=== PATIENT | male | born 1980 | race Two or more races ===

== ENCOUNTER 2021-05-31 06:30 | Emergency (ER) | payer MEDICAID ==
[~2021-05-31] VITALS: Ht 162.6 cm; Wt 70.9 kg
[2021-05-31 06:42] VITALS: BP 118/71
[2021-05-31] MEDS ORDERED: VENL150C2 PO (06:56)
[2021-05-31] MEDS ORDERED: GABA600T13 PO (06:56)
== END 2021-05-31 07:15 | disposition home or self-care (01) ==
LOC: ER 06:31
DX: Z76.0 Encounter for issue of repeat prescription (principal); M79.643 Pain in unspecified hand; Z79.899 Other long term (current) drug therapy
CPT/HCPCS: 99281; 99283

== ENCOUNTER 2021-06-20 17:45 | Emergency (ER) | payer MEDICAID ==
[~2021-06-20] VITALS: Ht 162.6 cm; Wt 71.4 kg
[~2021-06-20 17:45] MED LIST: GABA600T13 PO; VENL150C2 PO
[2021-06-20 17:50] VITALS: BP 111/79
[2021-06-20] MEDS ORDERED: GABA600T13 PO (18:02)
[2021-06-20] MEDS ORDERED: VENL150C2 PO (18:02)
== END 2021-06-20 19:22 | disposition home or self-care (01) ==
LOC: ER 17:46
DX: Z76.0 Encounter for issue of repeat prescription (principal); M19.90 Unspecified osteoarthritis, unspecified site; F17.210 Nicotine dependence, cigarettes, uncomplicated; Z79.899 Other long term (current) drug therapy
CPT/HCPCS: 99282

== ENCOUNTER 2024-08-23 05:57 | Emergency (ER) | payer MEDICAID ==
[~2024-08-23] VITALS: Ht 162.6 cm; Wt 70.0 kg
[~2024-08-23 05:57] MED LIST changes: +GABA-1405 PO; -GABA600T13 PO; -VENL150C2 PO; +VENL150C5 PO
--- NOTE | 2024-08-23 06:41 | Physician Documentation ---
History of Present Illness ~ Chief Complaint: Sore Throat Stated Complaint: SORE THROAT/MED REFILL Time Seen by MD: 06:26 Primary Medical Doctor: Pj Whitten in [facility] 44-year-old gentleman with a history of depression and cervical neuralgia came to the emergency room for sore throat for two days. He is able to talk and swallow. He thinks he got it from his grandson he has been taking care of. No fever no chills no shortness a breath and no chest pain no abdominal pain. No nausea vomiting diarrhea. Medication Reconciliation Allergies: Coded Allergies: No Known Allergies (Unverified , 08/23/24) Scheduled Gabapentin (Gabapentin), 1 TAB PO BID Gabapentin (Gabapentin), 1 TAB PO Q8H Venlafaxine HCl (Effexor Xr), 1 CAP PO DAILY Venlafaxine HCl (Effexor Xr), 1 CAP PO DAILY Past Medical History Past Medical History: Arthritis Past Surgical History: noncontributory Alcohol Use: None Drug Use: none Review of Systems ROS As stated above in the HPI, otherwise all systems are reviewed and negative. Physical Exam Vital Signs: Temperature: 97.5, Source: Temporal, Heart Rate: 87, Respiratory Rate: 12, BP: 123/68, Pulse Oximetry: 100, Weight: 69.950 Physical Exam Reviewed vital signs and afebrile and well within normal range. Const: The patient is not in acute cardiopulmonary distress Head: Atraumatic Eyes: Normal Conjunctiva ENT: Normal External Ears, Nose and Mouth. Moist mucous membranes Bilateral tonsillar enlargement and scattered white exudate on top of the enlargement. Airway is wide open. Neck: Full range of motion. No meningismus, no stridor Resp: Clear to auscultation bilaterally. Normal work of breathing Cardio: Regular rate and rhythm, no murmurs. Skin well perfused Abd: Soft, non-tender, non-distended. Normal bowel sounds. No rebound or guarding Skin: No petechiae or rashes. Warm and dry Back: No midline or flank tenderness Ext: No cyanosis, or edema Neuro: Awake and alert Psych: Normal Mood and Affect Progress Results/Orders Results/Orders Vital Signs 08/23/24 06:00 Temp 97.5 Pulse 87 Resp 12 B/P (MAP) 123/68 Pulse Ox 100 Medical Decision Making Findings During the physical examination, the findings suggestive of acute life- threatening condition such as JVD, tracheal deviation, acidotic breathing, noisy stridorous breath sounds, pulses paradoxus, muffled heart sounds, unequal breath sounds, abdominal rigidity and rebound tenderness, focal neurological deficits, cool clammy skin, severe hypotension, severe tachycardia or bradycardia are absent. Patient is not in any respiratory distress. By the clinical examination the patient does have acute pharyngitis and I will put him on antibiotics and a couple of days dose of prednisone. DISCLAIMER Inadvertent spelling and grammatical errors,inadvertent suction dredge dumping supervisor errors,syntax errors, grammatical errors, and spelling errors are likely due to EMR/dictation software use and do not reflect on the overall quality of patient care. Note that the electronic time recorded on this note does not necessarily reflect the actual time of the patient encounter. Departure Disposition: 01 HOME / SELF CARE / HOMELESS Impression: Primary Impression: Acute pharyngitis Condition: Stable Discharge Instructions: Strep Throat, Adult, Pharyngitis Additional Instructions: Thank you so much for visiting [facility] Emergency room. Please ask your nurse or provider if you have questions about your care today and do not leave until all your questions have been answered. Please use any medications given as directed and follow-up with your doctor in the next 1-3 days. You may also use motrin and tylenol as needed for pain unless instructed otherwise by your provider or nurse. Indications for more urgent follow-up have been discussed, but you may return to the Emergency Department at ANY time for any worrisome or worsening symptoms. Drink lots of water and soft food for 3 to 5 days. Referrals: NO PRIMARY CARE PROVIDER (PCP) Prescriptions Prednisolone (Prelone 15MG/5ML Solution) 15 Mg/5 Ml Solution 10 ML PO Q12H for 2 Days, #50 ML 0 Refills Prov: TERRANCE TAVERAS MD 08/23/24 Amox Tr/Potassium Clavulanate (Augmentin 875-125 Tablet) 1 Each Tablet 1 TAB PO Q12H for 7 Days, #14 TAB Prov: TERRANCE TAVERAS MD 08/23/24 Education Educated: Patient Educated regarding: diagnosis, treatment Signature Scribe Signature: x Attestation: TERRANCE Mabry MD August 23, 2024 06:41
[2024-08-23] MEDS ORDERED: AMOX-117 PO (06:42)
[2024-08-23] MEDS ORDERED: PRED15SO72 PO (06:42)
[2024-08-23 08:03] VITALS: BP 120/72; PULSE 76; RESP 12; TEMP 97.5; O2SAT 100
== END 2024-08-23 08:06 | disposition home or self-care (01) ==
LOC: ER 05:58
DX: J02.9 Acute pharyngitis, unspecified (principal); M19.90 Unspecified osteoarthritis, unspecified site
CPT/HCPCS: 99283